=== PATIENT | female | born 1970 | race Two or more races ===

== ENCOUNTER 2022-01-03 10:59 | Emergency (ER) | payer OTHER ==
[2022-01-03 11:21] VITALS: BMI 29.0
[2022-01-03] MEDS ORDERED: ACETAMINOPHEN 1000 MG/100 ML BAG IVPB ONE (12:09)
[2022-01-03] MEDS ORDERED: FAMOTIDINE 20 MG/50 ML IVPB 20 MG/50 ML MG IVPB ONE (12:09)
[2022-01-03] MEDS ORDERED: MAG HYDROX/AL HYDROX/SIMETH 30 ML UNIT-DOSE CUP PO ONE (12:09)
[2022-01-03] MEDS ORDERED: SODIUM CHLORIDE 0.9% 500 ML INFUS.BAG IV ONE (12:09)
[2022-01-03] MEDS ORDERED: LIDOCAINE 5% TOPICAL PATCH TP ONE (12:12)
[2022-01-03] MEDS ORDERED: LIDOCAINE 5% TOPICAL PATCH ONE (12:58)
[2022-01-03] MEDS ORDERED: MAG HYDROX/AL HYDROX/SIMETH 30 ML UNIT-DOSE CUP ONE (12:58)
[2022-01-03] MEDS ORDERED: ACETAMINOPHEN INJECTION 100 ML IVPB ONE (12:58)
[2022-01-03] MEDS ORDERED: FAMOTIDINE 10 MG/ML VIAL IVPB ONE (12:59)
[2022-01-03 13:49] LABS: BASO % 0.2 % (0-2.0); EOS % 0.3 % (0-4.5); HEMATOCRIT 42.4 % (32.4-45.2); HEMOGLOBIN 13.8 GM/dL (10.7-15.3); LYMPH % 15.1 % (8-40); MCH 28.1 pg (25.7-33.7); MCHC 32.4 g/dl (32.0-36.0); MEAN CELL VOLUME 86.6 fl (80-96); MEAN PLT VOLUME 7.2 fl (7.5-11.1); NEUT % 74.4 % (42.8-82.8); PLATELET COUNT 221 10^3/uL (134-434); RDW 12.9 % (11.6-15.6)
[2022-01-03 14:00] LABS: INR 1.09 (0.83-1.09); PROTHROMBIN TIME (PATIENT) 12.6 SEC (9.7-13.0)
[2022-01-03 14:02] LABS: ACTIVATED PTT 26.6 SECONDS (25.2-36.5)
[2022-01-03 14:03] LABS: EPI CELLS >36 /uL (0-25.1); HYALINE CASTS 2 /uL (0-3.1); PH,URINE 6.5 (5.0-8.0); URINE APPEARANCE CLEAR; URINE BACTERIA 1050 /uL (0-1359); URINE BILIRUBIN NEGATIVE (NEGATIVE); URINE COLOR YELLOW; URINE GLUCOSE (UA) NEGATIVE (NEGATIVE); URINE KETONE 1+ (NEGATIVE); URINE LEUK ESTERASE TRACE (NEGATIVE); URINE NITRITE NEGATIVE (NEGATIVE); URINE PROTEIN TRACE (NEGATIVE); URINE RBC 20 /uL (0-23.9); URINE WBC 45 /uL (0-25.8)
[2022-01-03 14:10] LABS: CALCIUM 9.4 mg/dL (8.5-10.1)
[2022-01-03 14:11] LABS: ALBUMIN 3.8 g/dl (3.4-5.0); BLOOD UREA NITROGEN 15.3 mg/dL (7-18)
[2022-01-03 14:13] LABS: HCG,QUALITATIVE URINE Negative
[2022-01-03 14:14] LABS: CREATININE 1.1 mg/dL (0.55-1.3)
[2022-01-03 14:16] LABS: TOT PROT 7.7 g/dl (6.4-8.2)
[2022-01-03 14:20] LABS: BILIRUBIN,TOTAL 0.5 mg/dL (0.2-1)
[2022-01-03 21:28] VITALS: BP 129/75; PULSE 76; RESP 20
[2022-01-03] MEDS ORDERED: LIDOCAINE PATCH REMOVAL MC ONE (22:00)
== END 2022-01-03 21:28 | disposition home or self-care (01) ==
LOC: JER 10:59
PROC: 3E033NZ Introduction of Analgesics, Hypnotics, Sedatives into Peripheral Vein, Percutaneous Approach (ICD-10-PCS; principal; 2022-01-03)
PROC: 3E033GC Introduction of Other Therapeutic Substance into Peripheral Vein, Percutaneous Approach (ICD-10-PCS; 2022-01-03)
DX: R10.12 Left upper quadrant pain (principal); M54.50 Low back pain, unspecified
CPT/HCPCS: 36415; 74177-TC; 80053; 81003; 83690; 84703; 85025; 85610; 85730; 87086; 99285-25; Q9967